=== PATIENT | female | born 1945 | race Caucasian/White ===

== ENCOUNTER → 2018-09-08 | Outpatient (CLI) | payer MEDICARE, OTHER ==
[2015-06-06 11:36] VITALS: BP 127/57
[~2018-09-08] MED LIST: ACET325T9 PO; CLOP75TA57 PO; ESCITALOPRAM OXA5 MG PO; FURO-69 PO; METF500T16 PO; ZPACK
--- NOTE | 2018-09-08 16:25 | RAD ---
Pelvic ultrasound, 09/08/2018: HISTORY: Right lower quadrant pain Transabdominal and transvaginal scans were obtained. The study was somewhat limited due to overlying stool and gas. The uterus is within normal limits in size. A normal central uterine echo is seen measuring 4 mm in AP dimension. The ovaries are of normal size. No adnexal mass is seen. No free fluid is evident in the pelvis. IMPRESSION: No significant abnormality is detected. CT scanning may be useful for further evaluation, if clinically indicated. Electronically signed by: Omkar Woodall MD (09/08/2018 4:21 PM) [facility]
== END | disposition home or self-care (01) ==
LOC: US 08:57
PROVIDERS: ATTEND Family Medicine
DX: R10.2 Pelvic and perineal pain (principal); R10.31 Right lower quadrant pain
CPT/HCPCS: 76830; 76856